=== PATIENT | male | born 1995 | race Caucasian/White ===

== ENCOUNTER 2025-04-23 15:46 | Emergency (ER) | payer MEDICAID ==
[~2025-04-23] VITALS: Ht 175.3 cm; Wt 66.7 kg
[2025-04-23 15:55] VITALS: BP 155/84; TEMP 97.9
[2025-04-23] MEDS ORDERED: CLOT15CR27 TP (16:05)
[2025-04-23] MEDS ORDERED: CEPH-570 PO (16:05)
[2025-04-23 16:37] VITALS: O2SAT 100
== END 2025-04-23 16:38 | disposition home or self-care (01) ==
LOC: ER 15:52
DX: R21 Rash and other nonspecific skin eruption (principal); F17.200 Nicotine dependence, unspecified, uncomplicated; J45.909 Unspecified asthma, uncomplicated